=== PATIENT | male | born 2000 | race Hispanic/Latino ===

== ENCOUNTER 2020-03-25 00:47 | Emergency (ER) | payer SELFPAY | END 2020-03-25 02:13 | LOC: EDH 00:47 | DX: S62.630A Displaced fracture of distal phalanx of right index finger, initial encounter for closed fracture (principal); S01.01XA Laceration without foreign body of scalp, initial encounter; F43.0 Acute stress reaction; X58.XXXA Exposure to other specified factors, initial encounter; Y93.01 Activity, walking, marching and hiking; Y92.89 Other specified places as the place of occurrence of the external cause; Y99.8 Other external cause status | CPT/HCPCS: 12002; 70450; 73130 ==